=== PATIENT | female | born 1975 | race Caucasian/White ===

== ENCOUNTER 2023-07-14 10:42 | Emergency (ER) | payer OTHER ==
[~2023-07-14] VITALS: Ht 162.6 cm; Wt 111.1 kg
[2023-07-14] MEDS ORDERED: SYNTHROID100 MCG PO (11:08)
== END 2023-07-14 19:48 | disposition home or self-care (01) ==
LOC: ER 10:42
DX: M54.32 Sciatica, left side (principal)